=== PATIENT | male | born 1945 | race Caucasian/White ===

== ENCOUNTER 2016-09-12 | Inpatient (IN) | payer MEDICARE ==
[~2016-09-12] VITALS: Ht 177.8 cm; Wt 87.8 kg
[2016-09-12] VITALS (1327 sets, daily range): BP systolic 96–123; BP diastolic 46–65; PULSE 78–100; TEMP 97.6–98.2; O2SAT 81–100
[2016-09-12 00:17] LABS: BASO % 0.3 % (0.0-2.0); EOS # 0.1 (0.0-0.7); EOS % 0.5 % (0-4.0); GRAN # 12.6 (1.4-6.5); HEMATOCRIT 45.7 % (42.0-52.0); HEMOGLOBIN 15.4 g/dl (13.5-18.0); LYMPH # 1.5 (1.2-3.4); LYMPH % 10.1 % (20.0-51.0); MEAN CELL VOLUME 93 fl (80.0-100.0); MEAN CORPUSCULAR HEMOGLOBIN 31 pg (27.0-31.0); MEAN CORPUSCULAR HGB CONC 34 g/dl (33.0-37.0); MEAN PLATELET VOLUME 9.8 fl (7.4-10.4); MONO # 0.7 (0.1-0.6); MONO % 4.6 % (1.7-9.3); PLATELET COUNT 200 K/mm3 (130-400); RED BLOOD COUNT 4.93 M/mm3 (4.20-5.60); REDCELL DISTRIBUTION WIDTH-CV 14.7 % (11.5-14.5)
[2016-09-12 00:24] LABS: ARTERIAL BLOOD GAS BASE EXCESS -5.4 (-2-2); ARTERIAL BLOOD GAS HCO3 20.2 meq/L (22-26); ARTERIAL BLOOD GAS PO2 158.2 mmHg (80-100); ARTERIAL BLOOD GAS pH 7.33 (7.35-7.45)
[2016-09-12 00:25] LABS: ALLEN TEST YES; ALLENS TEST RESULT PASS; ATS? YES
[2016-09-12 00:26] LABS: ADJUSTED CALCIUM 8.9 mg/dL (8.4-10.2); ALBUMIN 4.4 gm/dL (3.5-5.0); CALCIUM 9.2 mg/dL (8.4-10.2); CREATININE, serum 1.27 mg/dL (0.66-1.25); POTASSIUM 5.5 mmol/L (3.4-5.0); TOTAL PROTEIN 7.6 gm/dL (6.4-8.2)
[2016-09-12 00:38] LABS: TROPONIN-I 0.075 ng/mL (0.000-0.034)
[2016-09-12 02:39] LABS: PARTIAL THROMBOPLASTIN TIME 31.9 SECONDS (26.0-37.0)
[2016-09-12 02:40] LABS: PROTHROMBIN TIME 11.2 SECONDS (9.7-12.8)
[2016-09-12 04:12] LABS: ARTERIAL BLD GAS O2 SATURATION 97.3 % (92-100); ARTERIAL BLD GAS TCO2 CT 23.5; ARTERIAL BLOOD GAS BASE EXCESS -3.3 (-2-2); ARTERIAL BLOOD GAS HCO3 22.3 meq/L (22-26); ARTERIAL BLOOD GAS PHT 7.34 C (7.35-7.45); ARTERIAL BLOOD GAS PO2 103.8 mmHg (80-100); ARTERIAL BLOOD GAS PO2T 103.8 (80-100); ARTERIAL BLOOD GAS pH 7.34 (7.35-7.45); OXYHEMOGLOBIN 95.3 %
[2016-09-12 04:22] LABS: ALLEN TEST YES; ALLENS TEST RESULT PASS; ATS? YES
[2016-09-12 06:01] LABS: HEMATOCRIT 39.5 % (42.0-52.0); MEAN CELL VOLUME 92 fl (80.0-100.0); MEAN CORPUSCULAR HEMOGLOBIN 31 pg (27.0-31.0); MEAN CORPUSCULAR HGB CONC 34 g/dl (33.0-37.0); PLATELET COUNT 190 K/mm3 (130-400); REDCELL DISTRIBUTION WIDTH-CV 14.8 % (11.5-14.5); WHITE BLOOD COUNT 16.1 K/mm3 (4.8-10.8)
[2016-09-12 06:03] LABS: HEMOGLOBIN 13.3 g/dl (13.5-18.0)
[2016-09-12 06:04] LABS: ADD PATHOLOGY DIFF REVIEW NO
[2016-09-12 06:14] LABS: ADJUSTED CALCIUM 8.5 mg/dL (8.4-10.2); ALBUMIN 3.9 gm/dL (3.5-5.0); BILIRUBIN,TOTAL 0.7 mg/dL (0.0-1.0); CALCIUM 8.4 mg/dL (8.4-10.2); CREATININE, serum 1.21 mg/dL (0.66-1.25); POTASSIUM 4.8 mmol/L (3.4-5.0); TOTAL PROTEIN 6.9 gm/dL (6.4-8.2)
[2016-09-12 06:20] LABS: BAND 45 % (0-10); NEUTROPHILS 48 % (42.0-75.2); PLATELET ESTIMATE NORMAL (NORMAL); TOTAL CELLS COUNTED 100
[2016-09-12] MEDS ORDERED: PACERONE200 MG PO (14:05)
[2016-09-12] MEDS ORDERED: RT ADVAIR 228 DISKUS IH (14:05)
[2016-09-12] MEDS ORDERED: ZOLOFT 100MG100 MG PO (14:05)
[2016-09-12] MEDS ORDERED: RT SPIRIVA18 MCG IH (14:07)
[2016-09-12] MEDS ORDERED: ATROVENT I0.2 MG/1 M IH (14:07)
[2016-09-12] MEDS ORDERED: PROAIR HFA0.09 MG/AC IH (14:07)
[2016-09-12] MEDS ORDERED: VASOTEC 5MG5 MG/TAB PO (14:08)
[2016-09-12] MEDS ORDERED: GLUCOPHAGE500 MG/TAB PO (14:08)
[2016-09-12] MEDS ORDERED: UNIPHYL 400MG400 MG PO (14:09)
[2016-09-12] MEDS ORDERED: ASPIRIN 81M81 MG/TA2 PO (15:31)
[2016-09-12 16:07] LABS: ARTERIAL BLD GAS O2 SATURATION 94.5 % (92-100); ARTERIAL BLD GAS TCO2 CT 20.5; ARTERIAL BLOOD GAS BASE EXCESS -4.7 (-2-2); ARTERIAL BLOOD GAS HCO3 19.4 meq/L (22-26); ARTERIAL BLOOD GAS PHT 7.38 C (7.35-7.45); ARTERIAL BLOOD GAS PO2 71.5 mmHg (80-100); ARTERIAL BLOOD GAS PO2T 71.5 (80-100); ARTERIAL BLOOD GAS pH 7.38 (7.35-7.45); OXYHEMOGLOBIN 93.6 %
[2016-09-12 16:08] LABS: ALLEN TEST NO; ATS? YES
[2016-09-12 18:58] LABS: INFLUENZA B NEGATIVE
[2016-09-12 19:22] LABS: PH 5 (5-8); SQUAMOUS EPITHELIAL None Seen /hpf; URINE APPEARANCE Clear; URINE BACTERIA None Seen /hpf; URINE BILIRUBIN Negative (NEGATIVE); URINE BLOOD Negative (NEGATIVE); URINE COLOR Yellow; URINE GLUCOSE Negative (NEGATIVE); URINE KETONE Negative (NEGATIVE); URINE RBC 0-2 /hpf; URINE UROBILINOGEN Negative (NEGATIVE); URINE WBC 0-2 /hpf
[2016-09-13] VITALS (1215 sets, daily range): BP systolic 102–133; BP diastolic 47–75; PULSE 68–116; TEMP 97.5–98.2; O2SAT 74–100
[2016-09-13 13:06] LABS: INR 1.1 (0.8-3.0); PROTHROMBIN TIME 11.8 SECONDS (9.7-12.8)
[2016-09-14] VITALS (750 sets, daily range): BP systolic 113–131; BP diastolic 48–67; PULSE 76–100; TEMP 97.5–98.5; O2SAT 57–100
[2016-09-15 02:23] VITALS: BP 133/54; PULSE 85; TEMP 98.5
[2016-09-15 08:41] VITALS: BP 114/49; PULSE 94; TEMP 98.6
[2016-09-15 08:52] LABS: BASO % 0.2 % (0.0-2.0); GRAN # 9.3 (1.4-6.5); GRAN % 87.2 % (42.2-75.2); HEMATOCRIT 38.1 % (42.0-52.0); HEMOGLOBIN 12.1 g/dl (13.5-18.0); LYMPH # 0.4 (1.2-3.4); LYMPH % 3.5 % (20.0-51.0); MEAN CELL VOLUME 96 fl (80.0-100.0); MEAN CORPUSCULAR HEMOGLOBIN 31 pg (27.0-31.0); MEAN CORPUSCULAR HGB CONC 32 g/dl (33.0-37.0); MEAN PLATELET VOLUME 10.6 fl (7.4-10.4); MONO # 0.9 (0.1-0.6); MONO % 8.1 % (1.7-9.3); PLATELET COUNT 213 K/mm3 (130-400); RED BLOOD COUNT 3.97 M/mm3 (4.20-5.60); REDCELL DISTRIBUTION WIDTH-CV 15.3 % (11.5-14.5); WHITE BLOOD COUNT 10.7 K/mm3 (4.8-10.8)
[2016-09-15 09:09] LABS: CALCIUM 8.2 mg/dL (8.4-10.2); CREATININE, serum 1.1 mg/dL (0.66-1.25); POTASSIUM 4.8 mmol/L (3.4-5.0)
[2016-09-15 11:53] VITALS: BP 126/54; PULSE 81; TEMP 97.6
[2016-09-15 15:48] VITALS: BP 130/65; PULSE 84; TEMP 97.9
[2016-09-15 19:41] VITALS: BP 150/61; PULSE 93; TEMP 98.6
[2016-09-15 23:07] VITALS: BP 141/56; PULSE 90; TEMP 98.5
[2016-09-16 03:15] VITALS: BP 134/64; PULSE 78; TEMP 98.6
[2016-09-16 07:58] VITALS: BP 133/59; PULSE 80; TEMP 97.6
[2016-09-16 12:22] VITALS: BP 130/53; PULSE 61; TEMP 97.5
[2016-09-16 15:54] VITALS: BP 128/57; PULSE 89; TEMP 98.7
[2016-09-16 19:41] VITALS: BP 120/50; PULSE 88; TEMP 98.4
[2016-09-16 23:07] VITALS: BP 113/81; PULSE 78; TEMP 98.6
[2016-09-17 03:48] VITALS: BP 144/61; PULSE 80; TEMP 98.7
[2016-09-17 07:49] LABS: HEMATOCRIT 39.7 % (42.0-52.0); HEMOGLOBIN 13.1 g/dl (13.5-18.0); MEAN CELL VOLUME 94 fl (80.0-100.0); MEAN CORPUSCULAR HEMOGLOBIN 31 pg (27.0-31.0); MEAN CORPUSCULAR HGB CONC 33 g/dl (33.0-37.0); MEAN PLATELET VOLUME 10.4 fl (7.4-10.4); PLATELET COUNT 203 K/mm3 (130-400); RED BLOOD COUNT 4.24 M/mm3 (4.20-5.60); REDCELL DISTRIBUTION WIDTH-CV 14.6 % (11.5-14.5); WHITE BLOOD COUNT 9.7 K/mm3 (4.8-10.8)
[2016-09-17 07:56] LABS: ADD PATHOLOGY DIFF REVIEW NO
[2016-09-17] MEDS ORDERED: LIPITOR20 MG PO (07:58)
[2016-09-17] MEDS ORDERED: IMDUR 60MG60 MG/TAB PO (07:58)
[2016-09-17 07:59] VITALS: BP 103/60; PULSE 83; TEMP 97.5
[2016-09-17 08:07] LABS: CALCIUM 8.4 mg/dL (8.4-10.2); CREATININE, serum 1.02 mg/dL (0.66-1.25); POTASSIUM 4.6 mmol/L (3.4-5.0)
[2016-09-17 09:11] LABS: BAND 6 % (0-10); METAMYELOCYTE 1 % (0-0); NEUTROPHILS 73 % (42.0-75.2); PLATELET ESTIMATE NORMAL (NORMAL); TOTAL CELLS COUNTED 100
[2016-09-17 09:13] LABS: TOXIC GRANULATION PRESENT
[2016-09-17] MEDS ORDERED: PREDNISONE10 MG PO (10:53)
[2016-09-17] MEDS ORDERED: NICODERM C21 MG/PATC TD (11:03)
[2016-09-17 11:44] VITALS: BP 112/48; PULSE 81; TEMP 97.5
[2016-09-17 15:40] VITALS: BP 115/51; PULSE 78; TEMP 98.2
== END 2016-09-17 19:17 | disposition home or self-care (01) | DRG 189 ==
LOC: COL.ER → ICU 00:58 → MEDICAL 02:00 → ICU 02:00 → MEDICAL 09-14 15:15
PROVIDERS: Emergency Medicine; Family Medicine; Internal Medicine; Internal Medicine Cardiovascular Disease; Nurse Practitioner Family; Physician Assistant
PROC: B2111ZZ Fluoroscopy of Multiple Coronary Arteries using Low Osmolar Contrast (ICD-10-PCS; principal; 2016-09-13)
PROC: B2151ZZ Fluoroscopy of Left Heart using Low Osmolar Contrast (ICD-10-PCS; 2016-09-13)
PROC: B4101ZZ Fluoroscopy of Abdominal Aorta using Low Osmolar Contrast (ICD-10-PCS; 2016-09-13)
DX: J96.01 Acute respiratory failure with hypoxia (principal); J18.9 Pneumonia, unspecified organism; I21.4 Non-ST elevation (NSTEMI) myocardial infarction; J44.0 Chronic obstructive pulmonary disease with (acute) lower respiratory infection; N17.9 Acute kidney failure, unspecified; J44.1 Chronic obstructive pulmonary disease with (acute) exacerbation; I25.10 Atherosclerotic heart disease of native coronary artery without angina pectoris; E11.9 Type 2 diabetes mellitus without complications; E87.5 Hyperkalemia; F17.210 Nicotine dependence, cigarettes, uncomplicated; T82.858S Stenosis of other vascular prosthetic devices, implants and grafts, sequela
CPT/HCPCS: OP; 99223-AI; 99232-AI; 99233-AI; 99239; A9270-GY; C1760; J1644; J1815; J1956; J2250; J2920; J2930; J3010; J7030; J7512; Q9967